=== PATIENT | female | born 1935 ===

== ENCOUNTER 2017-10-06 17:14 | Emergency (ER) | payer OTHER ==
[~2017-10-06] VITALS: Ht 157.5 cm; Wt 53.5 kg
[~2017-10-06 17:14] MED LIST: CLEOCIN HCL300 MG PO; CLOTRIMAZOLE-745 GM; CLOTRIMAZOLE-745 GM VG; FLUCONAZOLE150 MG PO; KETO10TA2 PO; NYSTATIN-TRIAMC30 GM TP; TOPROL XL100 M1
== END 2017-10-06 22:46 | disposition home or self-care (01) ==
LOC: ER 17:14
DX: R41.82 Altered mental status, unspecified (principal); R41.3 Other amnesia